=== PATIENT | female | born 2000 | race Caucasian/White ===

== ENCOUNTER 2022-03-20 00:54 | Emergency (ER) | payer BC, OTHER ==
[2022-03-20] MEDS ORDERED: Ketorolac Tromethamine 30 MG/ML VIAL ONE (01:17)
== END 2022-03-20 02:17 | disposition home or self-care (01) ==
LOC: CSHERS 00:54
DX: S20.211A Contusion of right front wall of thorax, initial encounter (principal); X58.XXXA Exposure to other specified factors, initial encounter
CPT/HCPCS: 71045; 71046; 96372; J1885

== ENCOUNTER 2022-03-21 15:28 | Emergency (ER) | payer BC ==
[2022-03-21] MEDS ORDERED: Ketorolac Tromethamine 30 MG/ML VIAL ONE (17:51)
== END 2022-03-21 18:10 | disposition home or self-care (01) ==
LOC: CSHERS 15:28
DX: M89.8X8 Other specified disorders of bone, other site (principal)
CPT/HCPCS: 96372; 99284; J1885